=== PATIENT | female | born 1960 | race Caucasian/White ===

== ENCOUNTER 2017-03-09 15:06 | Emergency (ER) | payer BC ==
[~2017-03-09] VITALS: Ht 157.5 cm; Wt 100.0 kg
[~2017-03-09 15:06] MED LIST: ALBUTEROL S2.5 MG/.5 IN; ALENDRONATE70 MG PO; ALPRAZOLAM0.5 MG PO; CYCLOBENZAPR10 MG PO; LISINOP/HCTZ1 TA2 PO; LISINOP/HCTZ1 TAB PO; PATANOL0.1 % OP; PRILOSEC20 MG PO; PROAIR HFA IN; ROBITUSSIN AC10 ML PO; TRAMADOL HCL50 MG PO
[2017-03-09] MEDS ORDERED: LISINOPRIL10 M1 PO (15:40)
[2017-03-09] MEDS ORDERED: PRILOSEC20 MG PO (15:40)
[2017-03-09] MEDS ORDERED: ULTRAM50 M1 PO (17:09)
[2017-03-09 17:30] VITALS: BP 179/81
== END 2017-03-09 17:30 | disposition home or self-care (01) | DRG 605 ==
LOC: ED 15:06
DX: S00.93XA Contusion of unspecified part of head, initial encounter (principal); N64.4 Mastodynia; S13.9XXA Sprain of joints and ligaments of unspecified parts of neck, initial encounter; W18.39XA Other fall on same level, initial encounter; Y93.H3 Activity, building and construction; Y92.410 Unspecified street and highway as the place of occurrence of the external cause